=== PATIENT | female | born 1985 | race Caucasian/White ===

== ENCOUNTER 2017-11-10 01:54 | Observation (INO) | payer BC, OTHER ==
[2017-11-10 02:29] VITALS: BMI 22.8
[2017-11-10] MEDS ORDERED: ONDANSETRON 4 MG/2 ML VIAL IVPUSH ONE (02:29)
--- NOTE | 2017-11-10 02:31 | PDOC ---
History of Present Illness - General Stated Complaint: VOMITING Past History - Past Medical History Allergies/Adverse Reactions: Allergies Allergy/AdvReac Type Severity Reaction Status Date / Time nut - unspecified [nut] Allergy Verified 11/10/17 02:27 shellfish derived Allergy Verified 11/10/17 02:27 DAIRY PRODUCTS Allergy Difficulty Uncoded 11/10/17 02:27 Breathing Home Medications: Ambulatory Orders Albuterol 0.083% Nebulizer Sue [Ventolin 0.083% Nebulizer Soln -] 1 neb NEB ACHS 06/15/14 Asthma: Yes - Immunization History Immunization Up to Date: Yes - Suicide/Smoking/Psychosocial Hx Smoking Status: No Smoking History: Never smoked Have you smoked in the past 12 months: No Number of Cigarettes Smoked Daily: 0 Information on smoking cessation initiated: No Hx Alcohol Use: No Drug/Substance Use Hx: No Substance Use Type: None *Physical Exam - Vital Signs Last Vital Signs Temp Pulse Resp BP Pulse Ox 99.8 F H 121 H 18 109/79 99 11/10/17 02:27 11/10/17 02:27 11/10/17 02:27 11/10/17 02:27 11/10/17 02:27
--- NOTE | 2017-11-10 02:44 | PDOC ---
History of Present Illness - General Chief Complaint: Nausea/Vomiting Stated Complaint: VOMITING Time Seen by Provider: 11/10/17 02:41 History Source: Patient Exam Limitations: No Limitations - History of Present Illness Initial Comments: 11/10/17 03:28 32F with pmh of asthma presents with 12 days of increasing b/l lower back pain, today la nena chills, diaphoresis and palpitations. Went to Urgent care on 10/29 which gave her a positive result for UTI, came back on 11/03 to repeat UA, was negative. Has history of pyelonephritis. 11/10/17 03:37 Timing/Duration: reports: gone now Past History - Past Medical History Allergies/Adverse Reactions: Allergies Allergy/AdvReac Type Severity Reaction Status Date / Time nut - unspecified [nut] Allergy Verified 11/10/17 02:27 shellfish derived Allergy Verified 11/10/17 02:27 DAIRY PRODUCTS Allergy Difficulty Uncoded 11/10/17 02:27 Breathing Home Medications: Ambulatory Orders Albuterol 0.083% Nebulizer Sue [Ventolin 0.083% Nebulizer Soln -] 1 neb NEB ACHS 06/15/14 Docusate Sodium [Colace] 100 mg PO DAILY 11/10/17 Prednisone [Deltasone] 20 mg PO DAILY 11/10/17 Asthma: Yes - Immunization History Immunization Up to Date: Yes - Suicide/Smoking/Psychosocial Hx Smoking Status: No Smoking History: Never smoked Have you smoked in the past 12 months: No Number of Cigarettes Smoked Daily: 0 Information on smoking cessation initiated: No Hx Alcohol Use: No Drug/Substance Use Hx: No Substance Use Type: None Review of Systems - Review of Systems Able to Perform ROS?: Yes Is the patient limited Persian proficient: No Constitutional: Yes: See HPI HEENTM: No: Symptoms Reported Respiratory: No: Symptoms reported Cardiac (ROS): No: Symptoms Reported ABD/GI: Yes: See HPI : No: Symptoms Reported Musculoskeletal: No: Symptoms Reported Integumentary: No: Symptoms Reported All Other Systems: Reviewed and Negative *Physical Exam - Vital Signs Last Vital Signs Temp Pulse Resp BP Pulse Ox 99.8 F H 121 H 18 109/79 99 11/10/17 02:27 11/10/17 02:27 11/10/17 02:27 11/10/17 02:27 11/10/17 02:27 - Physical Exam General Appearance: Yes: Nourished, Appropriately Dressed, Apparent Distress HEENT: positive: EOMI, CRESCENCIO, Normal ENT Inspection Neck: negative: Tender Respiratory/Chest: positive: Chest Tender, Lungs Clear, Normal Breath Sounds Cardiovascular: positive: Regular Rhythm, Regular Rate, S1, S2 Gastrointestinal/Abdominal: positive: Normal Bowel Sounds, Flat, Soft. negative : Tender Musculoskeletal: positive: CVA Tenderness Extremity: positive: Normal Capillary Refill, Normal Inspection, Normal Range of Motion Neurologic: positive: felt hooker II-XII NML intact, Fully Oriented, Alert, Normal Mood/ Affect, Normal Response, Motor Strength 02/21 ED Treatment Course - LABORATORY CBC & Chemistry Diagram: 11/10/17 03:24 11/10/17 03:24 Medical Decision Making - Medical Decision Making 11/10/17 07:22 Elevated white count ~25 All other labs wnl, UA negative CT abd positive for 3.6cm left involuted ovarian cyst with minimal amount of free fluid 11/10/17 07:27 Patient still tachycardic despite 2L NS and pain control. Patient signed out to Dr. Merritt *DC/Admit/Observation/Transfer Diagnosis at time of Disposition: Viral gastroenteritis - Discharge Dispostion Disposition: HOME - Referrals - Patient Instructions Printed Discharge Instructions: DI for Vomiting -- Adult Additional Instructions: Come back to the ER for any new worsening or concerning symptoms. Follow up with your primary care provider within the next 3-4 days. - Post Discharge Activity
[2017-11-10] MEDS ORDERED: ONDANSETRON 4 MG/2 ML VIAL ONE (02:45)
[2017-11-10] MEDS ORDERED: KETOROLAC TROMETHAMINE 15 MG/ML VIAL IVPUSH ONE (03:31)
[2017-11-10 03:34] LABS: HEMATOCRIT 42.5 % (32.4-45.2); HEMOGLOBIN 14.5 GM/dL (10.7-15.3); MCH 31.1 pg (25.7-33.7); MCHC 34.2 g/dl (32.0-36.0); MEAN CELL VOLUME 90.9 fl (80-96); MEAN PLT VOLUME 7.7 fl (7.5-11.1); PLATELET COUNT 266 K/MM3 (134-434); RBC 4.67 M/mm3 (3.60-5.2); RDW 12.7 % (11.6-15.6); WHITE BLOOD COUNT 25.1 K/mm3 (4.0-10.0)
[2017-11-10] MEDS ORDERED: METOCLOPRAMIDE HCL INJECTION 10 MG/2 ML VIAL IVPUSH ONE (03:35)
[2017-11-10 03:41] LABS: HCG,QUALITATIVE URINE NEGATIVE
[2017-11-10] MEDS ORDERED: KETOROLAC TROMETHAMINE 15 MG/ML VIAL ONE (03:42)
[2017-11-10] MEDS ORDERED: METOCLOPRAMIDE HCL INJECTION 10 MG/2 ML VIAL ONE (03:42)
[2017-11-10 03:54] LABS: URINE APPEARANCE SLCLOUDY; URINE BILIRUBIN NEGATIVE (NEGATIVE); URINE BLOOD NEGATIVE (NEGATIVE); URINE COLOR YELLOW; URINE GLUCOSE (UA) NEGATIVE (NEGATIVE); URINE KETONE TRACE (NEGATIVE); URINE LEUK ESTERASE TRACE (NEGATIVE); URINE NITRITE NEGATIVE (NEGATIVE); URINE PROTEIN NEGATIVE (NEGATIVE)
[2017-11-10 04:01] LABS: EPI CELLS FEW /HPF (FEW); URINE BACTERIA RARE /hpf (NONE SEEN); URINE HYALINE CAST 1 /lpf; URINE MUCUS MANY
[2017-11-10] MEDS ORDERED: SODIUM CHLORIDE 0.9% 1000 ML INFUS.BAG IV ONE (04:06)
[2017-11-10] MEDS ORDERED: SODIUM CHLORIDE 1,000 ML IV STA (04:09)
[2017-11-10 04:10] LABS: ALBUMIN 4.2 g/dl (3.4-5.0); ALK PHOS 90 U/L (45-117); ANION GAP 11 (8-16); BILIRUBIN,TOTAL 1.5 mg/dL (0.2-1.0); BLOOD UREA NITROGEN 24 mg/dL (7-18); CALCIUM 8.5 mg/dL (8.5-10.1); CHLORIDE 102 mmol/L (98-107); CO2 25 mmol/L (21-32); CREATININE 0.9 mg/dL (0.55-1.02); GLUCOSE,RANDOM 102 mg/dL (74-106); POTASSIUM 3.6 mmol/L (3.5-5.1); SGOT/AST 12 U/L (15-37); SGPT/ALT 18 U/L (12-78); SODIUM 138 mmol/L (136-145); TOT PROT 7.1 g/dl (6.4-8.2)
[2017-11-10 05:11] LABS: PLATELET ESTIMATE ADEQUATE
[2017-11-10] MEDS ORDERED: cefTRIAXone 1 GM/50 ML BAG (PRE-DOCKED) IVPB ONE (05:35)
[2017-11-10] MEDS ORDERED: CEFTRIAXONE 1 GM/50 ML BAG ONE (05:41)
[2017-11-10] MEDS ORDERED: ACETAMINOPHEN 1000 MG/100 ML VIAL (NON FORMULARY) IVPB ONE (05:56)
--- NOTE | 2017-11-10 05:56 | PDOC ---
Attending Attestation - Resident Resident Name: Jaime Whitehead - ED Attending Attestation I have performed the following: I have examined & evaluated the patient, The case was reviewed & discussed with the resident, I agree w/resident's findings & plan - HPI HPI: 11/10/17 05:54 Pt comes with fever and tachycardia and flank pain. - Physicial Exam PE: 11/10/17 05:55 Agree with resident exam. Pt remains febrile and tachycardic despite treatment in the ER. - Medical Decision Making 11/10/17 05:55 Pt will be admitted to the hospitalist. Now she is awaiting UA, Urine culture, blood culture and she will be treated with 1 g rocephin 11/10/17 06:51 Patient Name: ASIF CAMPBELL THIS IS A PRELIMINARY REPORT FROM [facility] DATE OF SERVICE: 2017-11-10 05:52:43 IMAGES: [id number] EXAM: CT ABDOMEN AND PELVIS without contrast HISTORY: Pain COMPARISON: None. FINDINGS: Lung bases are clear. The visualized cardiac chambers are normal size and configuration. Normal unenhanced liver, gallbladder, pancreas, spleen, adrenal glands and kidneys. The stomach and abdominal small and large bowel are normal. There is no aortic aneurysm. There is no significant retroperitoneal lymphadenopathy. The pelvic small and large bowel are normal. The appendix is normal. 3.6 cm slightly complex, possibly involuting from a left ovarian cyst is noted. IUD is noted in the uterus. Urinary bladder is unremarkable. There is small amount of pelvic free fluid. No discrete pelvic lymphadenopathy is identified. IMPRESSION: Possible involuting 3.6 cm left ovarian cyst with small amount of free fluid. No other localizing findings for acute pathology. THIS DOCUMENT HAS BEEN ELECTRONICALLY SIGNED Reggie Sandoval MD
[2017-11-10] MEDS ORDERED: INSULIN (NOVOLOG MIX 70/30) 100 UNITS/ML MDV SQ ONE (06:49)
[2017-11-10] MEDS ORDERED: ACETAMINOPHEN INJECTION 100 ML IVPB ONE (06:49)
--- NOTE | 2017-11-10 08:03 | PDOC ---
*Physical Exam - Vital Signs Last Vital Signs Temp Pulse Resp BP Pulse Ox 99.8 F H 121 H 18 109/79 99 11/10/17 02:27 11/10/17 02:27 11/10/17 02:27 11/10/17 02:27 11/10/17 05:19 ED Treatment Course - LABORATORY CBC & Chemistry Diagram: 11/10/17 03:24 11/10/17 03:24 - ADDITIONAL ORDERS Additional order review: Laboratory Results 11/10/17 11/10/17 11/10/17 06:30 05:40 03:24 Sodium 138 Potassium 3.6 Chloride 102 Carbon Dioxide 25 Anion Gap 11 BUN 24 H Creatinine 0.9 Creat Clearance w eGFR > 60 Random Glucose 102 Lactic Acid 1.4 Calcium 8.5 Total Bilirubin 1.5 H AST 12 L ALT 18 Alkaline Phosphatase 90 Total Protein 7.1 Albumin 4.2 Lipase 210 Urine Color Urine Appearance Urine pH Ur Specific [place] Urine Protein Urine Glucose (UA) Urine Ketones Urine Blood Urine Nitrite Urine Bilirubin Urine Urobilinogen Ur Leukocyte Esterase Urine WBC (Auto) Urine RBC (Auto) Ur Epithelial Cells Urine Bacteria Hyaline Casts Urine Mucus Urine HCG, Qual 11/10/17 03:20 Sodium Potassium Chloride Carbon Dioxide Anion Gap BUN Creatinine Creat Clearance w eGFR Random Glucose Lactic Acid Calcium Total Bilirubin AST ALT Alkaline Phosphatase Total Protein Albumin Lipase Urine Color Yellow Urine Appearance Slcloudy Urine pH 7.0 Ur Specific [place] 1.021 Urine Protein Negative Urine Glucose (UA) Negative Urine Ketones Trace H Urine Blood Negative Urine Nitrite Negative Urine Bilirubin Negative Urine Urobilinogen 2.0 H Ur Leukocyte Esterase Trace Urine WBC (Auto) 5 Urine RBC (Auto) 3 Ur Epithelial Cells Few Urine Bacteria Rare Hyaline Casts 1 Urine Mucus Many Urine HCG, Qual Negative 11/10/17 02:31 Influenza Types A,B Antigen (REBECCA) - Final Nasopharyngeal Swab - Final 11/10/17 03:24 RBC 4.67 MCV 90.9 MCHC 34.2 RDW 12.7 MPV 7.7 Neutrophils % No Result Required. Lymphocytes % No Result Required. - Medications Given in the ED: ED Medications Discontinued Medications Generic Name Dose Route Start Last Admin Trade Name Freq PRN Reason Stop Dose Admin Acetaminophen 1,000 mg 11/10/17 05:56 11/10/17 06:07 Ofirmev Injection - IVPB 11/10/17 05:57 1,000 mg ONCE ONE Administration Ceftriaxone Sodium 1 gm 11/10/17 05:35 11/10/17 05:41 Rocephin 1gm Ivpb (Pre-Docked) IVPB 11/10/17 05:36 1 gm ONCE ONE Administration Protocol Sodium Chloride 1,000 mls @ 1,000 mls/hr 11/10/17 04:09 11/10/17 05:08 Normal Saline - IV 11/10/17 05:08 1,000 mls/hr ASDIR STA Administration Ketorolac Tromethamine 15 mg 11/10/17 03:31 11/10/17 03:55 Toradol Injection - IVPUSH 11/10/17 03:32 15 mg ONCE ONE Administration Metoclopramide HCl 10 mg 11/10/17 03:35 11/10/17 03:55 Reglan Injection - IVPUSH 11/10/17 03:36 10 mg ONCE ONE Administration Ondansetron HCl 4 mg 11/10/17 02:29 11/10/17 02:55 Zofran Injection IVPUSH 11/10/17 02:30 4 mg ONCE ONE Administration Sodium Chloride 1,000 ml 11/10/17 04:06 11/10/17 04:35 Normal Saline - IV 11/10/17 04:07 1,000 ml ONCE ONE Administration Medical Decision Making - Medical Decision Making 11/10/17 08:02 The patient is a 32F who presented with low back pain and was found to have a ruptured ovarian cyst. CT Impression: Possible involuting 3.6 cm left ovarian cyst with small amount of free fluid. Dispo: admission for obs 2/2 unresolved tachycardia and pain. 11/10/17 11:[address] Ortega of hospitalist team for obs medsurg admission. Official CT read: There is no evidence of hydroureteronephrosis, renal or ureteral stone, bilaterally. 2.8 cm focal low-attenuation density in the left ovary with a small amount of free fluid in the cul -de-sac that may be due to partially ruptured complex cyst. Please correlate with pelvis ultrasound , transabdominal and transvaginal. IUD is in place A preliminary report was forwarded by the [facility] service, [facility]. Pt comfortable appearing still complaining of low back and suprapubic pain. UA is negative. *DC/Admit/Observation/Transfer Diagnosis at time of Disposition: Viral gastroenteritis - Discharge Dispostion Condition at time of disposition: Stable Admit: Yes - Referrals - Patient Instructions - Post Discharge Activity
--- NOTE | 2017-11-10 09:32 | HP ---
CHIEF COMPLAINT: "I have Back pain" PCP: None HISTORY OF PRESENT ILLNESS: This is a 32 yo F with PMH of asthma and pyelonephritis 6 yrs ago, who presents due to increasing b/l lower back painx 2 weeks, associated with chills, diaphoresis and palpitations. she has been to Urgent care on 10/29 (slight leuk est in utine, no nitrate or bacteria) and again on 11/03 (normal UA) but found to have asthma exacerbation and was given a 5 day course of prednisone 40 d, which she completed 3 days ago. Ed visit was prompted by severe burning lower back pain this morning, causing her to have 5 eps of NBNB vomiting. She denies associated hematuria, dysuria, diarrhea or abd pain. She has no history of nephrolithiasis. + chronic constipation. She states that she was a lot more sick when she had pyelonephritis. Spiral CT in ED shows small R distal ureter kidney stone and Possible involuting 3.6 cm left ovarian cyst with small amount of free fluid. She denies CP, sob, cough, wheezing, h/a, sick contacts. ER course was notable for: (1)CXR-wnl (2)CT abd spiral (3)labs, abx, toradol Recent Travel: denies PAST MEDICAL HISTORY: as above PAST SURGICAL HISTORY: denies Social History: Smoking:denies Alcohol:denies Drugs: denies Family History: htn Allergies nut - unspecified [nut] Allergy (Verified 11/10/17 02:27) shellfish derived Allergy (Verified 11/10/17 02:27) DAIRY PRODUCTS Allergy (Uncoded 11/10/17 02:27) Difficulty Breathing HOME MEDICATIONS: Home Medications Medication Instructions Recorded Albuterol 0.083% Nebulizer Sue 1 neb NEB ACHS 06/15/14 [Ventolin 0.083% Nebulizer Soln -] Docusate Sodium [Colace] 100 mg PO DAILY 11/10/17 Prednisone [Deltasone] 20 mg PO DAILY 11/10/17 REVIEW OF SYSTEMS CONSTITUTIONAL: Absent: generalized weakness, malaise, loss of appetite, weight change HEENT: Absent: rhinorrhea, nasal congestion, throat pain, throat swelling CARDIOVASCULAR: Absent: chest pain, syncope, irregular heart rate, lightheadedness, peripheral edema RESPIRATORY: Absent: cough, shortness of breath, dyspnea with exertion, orthopnea, wheezing, stridor, hemoptysis GASTROINTESTINAL: Absent: abdominal pain, abdominal distension, diarrhea, melena, hematochezia GENITOURINARY: Absent: dysuria, frequency, urgency, hesitancy, hematuria, genital pain MUSCULOSKELETAL: Absent: myalgia, arthralgia SKIN: Absent: rash, itching, pallor HEMATOLOGIC/IMMUNOLOGIC: Absent: easy bleeding, easy bruising ENDOCRINE: Absent: unexplained weight gain, unexplained weight loss, heat intolerance, cold intolerance NEUROLOGIC: Absent: headache, focal weakness or paresthesias PSYCHIATRIC: Absent: anxiety, depression PHYSICAL EXAMINATION Vital Signs - 24 hr 11/10/17 11/10/17 02:27 05:19 Temperature 99.8 F H Pulse Rate 121 H Respiratory 18 Rate Blood Pressure 109/79 O2 Sat by Pulse 99 99 Oximetry (%) GENERAL: Awake, alert, and fully oriented, in no acute distress. HEAD: Normal with no signs of trauma. EYES: Pupils equal, round and reactive to light, extraocular movements intact, sclera anicteric, conjunctiva clear. No lid lag. EARS, NOSE, THROAT: Moist mucous membranes. NECK: supple LUNGS: Breath sounds equal, clear to auscultation bilaterally. No wheezes HEART: tachy rate and reg rhythm, normal S1 and S2 ABDOMEN: Soft, slightly tender rlq, not distended, normoactive bowel sounds, no guarding, no rebound, no masses. No hepatomegaly or splenomegaly. MUSCULOSKELETAL: mild R CVA tenderness. UPPER EXTREMITIES: 2+ pulses, warm, well-perfused. No peripheral edema. LOWER EXTREMITIES: 2+ pulses, warm, well-perfused. No calf tenderness. No peripheral edema. NEUROLOGICAL: Cranial nerves II-XII grossly intact. Normal speech. PSYCHIATRIC: Cooperative. Good eye contact. Appropriate mood and affect. SKIN: Warm, dry Laboratory Results - last 24 hr 11/10/17 11/10/17 11/10/17 03:20 03:24 03:24 WBC 25.1 H D RBC 4.67 Hgb 14.5 Hct 42.5 MCV 90.9 MCH 31.1 MCHC 34.2 RDW 12.7 Plt Count 266 MPV 7.7 Total Counted 100 Neutrophils % No Result Required. Neutrophils % (Manual) 85.0 H Band Neutrophils % 4.0 Lymphocytes % No Result Required. Lymphocytes % (Manual) 8.0 Monocytes % (Manual) 3 L Differential Comment Man diff performed Platelet Estimate Adequate Platelet Comment Sodium 138 Potassium 3.6 Chloride 102 Carbon Dioxide 25 Anion Gap 11 BUN 24 H Creatinine 0.9 Creat Clearance w eGFR > 60 Random Glucose 102 Lactic Acid Calcium 8.5 Total Bilirubin 1.5 H AST 12 L ALT 18 Alkaline Phosphatase 90 Total Protein 7.1 Albumin 4.2 Lipase Urine Color Yellow Urine Appearance Slcloudy Urine pH 7.0 Ur Specific [place] 1.021 Urine Protein Negative Urine Glucose (UA) Negative Urine Ketones Trace H Urine Blood Negative Urine Nitrite Negative Urine Bilirubin Negative Urine Urobilinogen 2.0 H Ur Leukocyte Esterase Trace Urine WBC (Auto) 5 Urine RBC (Auto) 3 Ur Epithelial Cells Few Urine Bacteria Rare Hyaline Casts 1 Urine Mucus Many Urine HCG, Qual Negative 11/10/17 11/10/17 05:40 06:30 WBC RBC Hgb Hct MCV MCH MCHC RDW Plt Count MPV Total Counted Neutrophils % Neutrophils % (Manual) Band Neutrophils % Lymphocytes % Lymphocytes % (Manual) Monocytes % (Manual) Differential Comment Platelet Estimate Platelet Comment Sodium Potassium Chloride Carbon Dioxide Anion Gap BUN Creatinine Creat Clearance w eGFR Random Glucose Lactic Acid 1.4 Calcium Total Bilirubin AST ALT Alkaline Phosphatase Total Protein Albumin Lipase 210 Urine Color Urine Appearance Urine pH Ur Specific [place] Urine Protein Urine Glucose (UA) Urine Ketones Urine Blood Urine Nitrite Urine Bilirubin Urine Urobilinogen Ur Leukocyte Esterase Urine WBC (Auto) Urine RBC (Auto) Ur Epithelial Cells Urine Bacteria Hyaline Casts Urine Mucus Urine HCG, Qual ASSESSMENT/PLAN: This is a 32 yo F with PMH of asthma and pyelonephritis 6 yrs ago, who presents due to increasing b/l lower back painx 2 weeks, associated with chills, diaphoresis and palpitations. L small ureteral stone -spiral CT abd/pelvis appreciated -associated with tachycardia, back pain and trace Leuk est on CT -appears to have been passing for the past 2 weeks. -received one dose of rocephin in ed; does not require further abx -give one does of flomax 0.8 -IVF -brief observation Leukocytosis -25; may be explained by recent completion of prednisone course -trend cbc Asthma -albuterol nebs prn. Constipation -colace prn FEN NS @ 83 lytes stable diet with allergic restrictions Problem List - Problem (1) Kidney stone Code(s): N20.0 - CALCULUS OF KIDNEY (2) Leukocytosis Code(s): D72.829 - ELEVATED WHITE BLOOD CELL COUNT, UNSPECIFIED (3) Asthma Code(s): J45.909 - UNSPECIFIED ASTHMA, UNCOMPLICATED (4) Ruptured ovarian cyst Code(s): N83.29 - OTHER OVARIAN CYSTS * DO NOT USE * Visit type - Emergency Visit Emergency Visit: Yes Care time: The patient presented to the Emergency Department on the above date and was hospitalized for further evaluation of their emergent condition. - New Patient This patient is new to me today: Yes Date on this admission: 11/10/17 - Critical Care Critical Care patient: No
[2017-11-10] MEDS ORDERED: ALBUTEROL SO4 0.083% IH SOL 2.5 MG/3 ML VIAL.NEB. NEB PRN (09:52)
[2017-11-10] MEDS ORDERED: TAMSULOSIN HCL 0.4 MG CAP.ER.24H (FP) PO ONE (09:54)
[2017-11-10] MEDS ORDERED: SODIUM CHLORIDE 0.45% 1,000 ML IV SCH (10:00)
[2017-11-10] MEDS: ACETAMINOPHEN 325 MG TABLET (FP) PO PRN ×3 (10:30→21:59)
[2017-11-10] MEDS ORDERED: ALBUTEROL SO4 0.083% IH SOL 2.5 MG/3 ML VIAL.NEB. NEB SCH (11:00)
--- NOTE | 2017-11-10 13:21 | PN ---
Teaching Attending Note Name of Resident: Rissa Ortega ATTENDING PHYSICIAN STATEMENT I saw and evaluated the patient. I reviewed the resident's note and discussed the case with the resident. I agree with the resident's findings and plan as documented. SUBJECTIVE: OBJECTIVE: Vital Signs Period Temp Pulse Resp BP Sys/[place] Pulse Ox Last 24 Hr 99.1 F-99.8 F 116-121 18-18 108-109/62-79 99-99 Laboratory Tests 11/10/17 11/10/17 11/10/17 03:20 03:24 03:24 WBC 25.1 H D RBC 4.67 Hgb 14.5 Hct 42.5 MCV 90.9 MCH 31.1 MCHC 34.2 RDW 12.7 Plt Count 266 MPV 7.7 Total Counted 100 Neutrophils % No Result Required. Neutrophils % (Manual) 85.0 H Band Neutrophils % 4.0 Lymphocytes % No Result Required. Lymphocytes % (Manual) 8.0 Monocytes % (Manual) 3 L Differential Comment Man diff performed Platelet Estimate Adequate Platelet Comment Sodium 138 Potassium 3.6 Chloride 102 Carbon Dioxide 25 Anion Gap 11 BUN 24 H Creatinine 0.9 Creat Clearance w eGFR > 60 Random Glucose 102 Lactic Acid Calcium 8.5 Total Bilirubin 1.5 H AST 12 L ALT 18 Alkaline Phosphatase 90 Total Protein 7.1 Albumin 4.2 Lipase Urine Color Yellow Urine Appearance Slcloudy Urine pH 7.0 Ur Specific [place] 1.021 Urine Protein Negative Urine Glucose (UA) Negative Urine Ketones Trace H Urine Blood Negative Urine Nitrite Negative Urine Bilirubin Negative Urine Urobilinogen 2.0 H Ur Leukocyte Esterase Trace Urine WBC (Auto) 5 Urine RBC (Auto) 3 Ur Epithelial Cells Few Urine Bacteria Rare Hyaline Casts 1 Urine Mucus Many Urine HCG, Qual Negative 11/10/17 11/10/17 05:40 06:30 WBC RBC Hgb Hct MCV MCH MCHC RDW Plt Count MPV Total Counted Neutrophils % Neutrophils % (Manual) Band Neutrophils % Lymphocytes % Lymphocytes % (Manual) Monocytes % (Manual) Differential Comment Platelet Estimate Platelet Comment Sodium Potassium Chloride Carbon Dioxide Anion Gap BUN Creatinine Creat Clearance w eGFR Random Glucose Lactic Acid 1.4 Calcium Total Bilirubin AST ALT Alkaline Phosphatase Total Protein Albumin Lipase 210 Urine Color Urine Appearance Urine pH Ur Specific [place] Urine Protein Urine Glucose (UA) Urine Ketones Urine Blood Urine Nitrite Urine Bilirubin Urine Urobilinogen Ur Leukocyte Esterase Urine WBC (Auto) Urine RBC (Auto) Ur Epithelial Cells Urine Bacteria Hyaline Casts Urine Mucus Urine HCG, Qual Home Medications Medication Instructions Recorded Albuterol 0.083% Nebulizer Sue 1 neb NEB ACHS 06/15/14 [Ventolin 0.083% Nebulizer Soln -] Docusate Sodium [Colace] 100 mg PO DAILY 11/10/17 Prednisone [Deltasone] 20 mg PO DAILY 11/10/17 ASSESSMENT AND PLAN:
[2017-11-10] MEDS ORDERED: KETOROLAC TROMETHAMINE 30 MG/1 ML VIAL IVPUSH ONE (14:26)
[2017-11-10] MEDS ORDERED: KETOROLAC TROMETHAMINE 30 MG/1 ML VIAL ONE (14:29)
[2017-11-10] MEDS ORDERED: ALBUTEROL SO4 0.083% IH SOL 2.5 MG/3 ML VIAL.NEB. NEB ONE (15:22)
[2017-11-10] MEDS: ALBUTEROL SO4 0.083% IH SOL 2.5 MG/3 ML VIAL.NEB. NEB SCH ×2 (16:06→22:43)
[2017-11-10] MEDS ORDERED: ACETAMINOPHEN 325 MG TABLET (FP) ONE (18:13)
[2017-11-10] MEDS: SODIUM CHLORIDE 1,000 ML IV SCH (20:13)
--- NOTE | 2017-11-10 21:38 | EKG ---
Test Reason : Blood Pressure : / mmHG Vent. Rate : 102 BPM Atrial Rate : 102 BPM P-R Int : 128 ms QRS Dur : 066 ms QT Int : 322 ms P-R-T Axes : 030 058 034 degrees QTc Int : 419 ms SINUS TACHYCARDIA OTHERWISE NORMAL ECG NO PREVIOUS ECGS AVAILABLE Confirmed by KIRSTEN VILLAREAL MD ([id number]) on 11/10/2017 9:37:49 PM Referred By: Confirmed By:KIRSTEN VILLAREAL MD
[2017-11-11] MEDS: ACETAMINOPHEN 325 MG TABLET (FP) PO PRN ×3 (07:44→17:40)
[2017-11-11] MEDS: ALBUTEROL SO4 0.083% IH SOL 2.5 MG/3 ML VIAL.NEB. NEB SCH ×4 (08:00→16:00)
[2017-11-11 08:03] LABS: BASO % 0.3 % (0-2.0); EOS % 0.9 % (0-4.5); HEMOGLOBIN 11.2 GM/dL (10.7-15.3); LYMPH % 20.2 % (8-40); MCH 31.2 pg (25.7-33.7); MEAN CELL VOLUME 91.9 fl (80-96); MEAN PLT VOLUME 7.7 fl (7.5-11.1); MONO % 9.1 % (3.8-10.2); NEUT % 69.5 % (42.8-82.8); PLATELET COUNT 147 K/MM3 (134-434); RBC 3.59 M/mm3 (3.60-5.2); RDW 12.7 % (11.6-15.6); WHITE BLOOD COUNT 7.2 K/mm3 (4.0-10.0)
[2017-11-11 08:29] LABS: CALCIUM 7.4 mg/dL (8.5-10.1); CHLORIDE 107 mmol/L (98-107); POTASSIUM 3.6 mmol/L (3.5-5.1); SGPT/ALT 13 U/L (12-78); SODIUM 139 mmol/L (136-145)
[2017-11-11 08:35] LABS: ALBUMIN 2.7 g/dl (3.4-5.0); ALK PHOS 53 U/L (45-117); ANION GAP 7 (8-16); BILIRUBIN,TOTAL 1.6 mg/dL (0.2-1.0); BLOOD UREA NITROGEN 12 mg/dL (7-18); CO2 25 mmol/L (21-32); CREATININE 0.5 mg/dL (0.55-1.02); GLUCOSE,RANDOM 76 mg/dL (74-106); PHOSPHOROUS 2.5 mg/dL (2.5-4.9); SGOT/AST 9 U/L (15-37); TOT PROT 4.8 g/dl (6.4-8.2)
[2017-11-11] MEDS ORDERED: FLU VACCINE QUAD 60 MCG/0.5 ML (MDV 17-18) IM ONE (09:00)
[2017-11-11] MEDS ORDERED: DOCUSATE SODIUM 100 MG CAPSULE (FP) PO SCH (10:00)
[2017-11-11] MEDS: SODIUM CHLORIDE 1,000 ML IV SCH (11:33)
[2017-11-11 13:56] VITALS: BP 106/55; PULSE 97; TEMP 98.8
== END 2017-11-11 17:57 | disposition home or self-care (01) ==
LOC: JER 01:54 → JERBED 11:07 → J5S 22:18
PROVIDERS: ADMIT Internal Medicine; ATTEND Nurse Practitioner Acute Care
PROC: 3E03329 Introduction of Other Anti-infective into Peripheral Vein, Percutaneous Approach (ICD-10-PCS; principal; 2017-11-10)
PROC: 3E0333Z Introduction of Anti-inflammatory into Peripheral Vein, Percutaneous Approach (ICD-10-PCS; 2017-11-10)
PROC: 3E033GC Introduction of Other Therapeutic Substance into Peripheral Vein, Percutaneous Approach (ICD-10-PCS; 2017-11-10)
PROC: 3E0F7GC Introduction of Other Therapeutic Substance into Respiratory Tract, Via Natural or Artificial Opening (ICD-10-PCS; 2017-11-10)
DX: A08.4 Viral intestinal infection, unspecified (principal); N20.0 Calculus of kidney; N20.1 Calculus of ureter; D72.829 Elevated white blood cell count, unspecified; J45.909 Unspecified asthma, uncomplicated; M54.5 Low back pain; K59.00 Constipation, unspecified; Z91.013 Allergy to seafood; Z91.011 Allergy to milk products; Z91.010 Allergy to peanuts
CPT/HCPCS: 36415; 71046-TC; 74176; 80053; 81003; 81015; 83605; 83690; 83735; 84100; 84703; 85025; 87040; 87086; 87804; 90688; 93005; 93010; 94640; 99285-25; G0378